=== PATIENT | male | born 1985 | race Caucasian/White ===

== ENCOUNTER 2022-02-23 17:47 | Emergency (ER) | payer OTHER ==
[~2022-02-23] VITALS: Ht 188 cm; Wt 117.9 kg
[2022-02-23] MEDS: CYCLOBENZAPRINE HCL 10 MG TABLET PO ONE (19:30)
[2022-02-23] MEDS: CYCLOBENZAPRINE HCL 10 MG TABLET ONE (19:32)
[2022-02-23] MEDS ORDERED: CYCL5TAB PO (19:35)
[2022-02-23 19:39] VITALS: BP 145/82
== END 2022-02-23 20:27 | disposition home or self-care (01) ==
LOC: EDH 17:47
DX: M62.830 Muscle spasm of back (principal)
CPT/HCPCS: 72100

== ENCOUNTER 2024-10-19 17:20 | Emergency (ER) | payer BC ==
[~2024-10-19] VITALS: Ht 188 cm; Wt 106.1 kg
[~2024-10-19 17:20] MED LIST: CYCL5TAB3 PO
--- NOTE | 2024-10-19 17:39 | ERN ---
ED Note History of Present Illness Stated Complaint: SOB Chief Complaint: Shortness of Breath Time Seen by MD: 17:25 Time Seen by Midlevel: 17:25 Dictation: The patient is a 39-year-old male with a history of hypertension who presents to the emergency department with complaints of shortness of breath associated with chest pain, numbness to all extremities, nausea and dizziness onset an hour ago. patient reports that he has been having these episodes for a while intermittently. Reports he was evaluated in March for similar symptoms and was referred to Cardiology but did not follow up. Patient denies any recent fa lls, denies any cough, fevers or upper respiratory symptoms. Patient currently denies any chest pain. Allergies: Coded Allergies: ketorolac (Unverified Allergy, Unknown, 02/23/22) Home Meds Active Scripts Cyclobenzaprine HCl (Cyclobenzaprine HCl) 5 Mg Tablet, 10 MG PO every 8 hours for spasm pain for 7 Days, #21 TAB Prov:STEFFANIE ANTONIO BELT KNIFE FEEDER 02/23/22 Past Medical History Past Medical History: Hypertension Surgical History: Other Surgical History Other: VESECTOMY RN Note Reviewed/Agreed w/PFSH: Yes Review of System Dictation Constitutional: Negative for fever,chills, and weight loss Eyes: Negative for injury, pain,redness, and discharge ENT: Negative for injury,pain or swelling Cardiovascular: Negative for palpitations, and edema positive for chest pain Respiratory: Negative for cough, and wheezing, positive for shortness of breath Abdomen/GI: Negative for abdominal pain, nausea, vomiting, diarrhea, and constipation Back: Negative for injury and pain : Negative for injury, bleeding and discharge MS/Extremity: Negative for injury and deformity Skin: Negative for rash, and discoloration Neuro: Negative for headache, weakness, numbness, tingling, and seizure positive for dizziness Psych: Negative for suicide ideation, homicidal ideation, and hallucinations Initial Vital Sign VS Vital Signs Date Time Temp Pulse Resp B/P (MAP) Pulse Ox O2 Delivery O2 Flow Rate FiO2 10/19/24 17:23 97.2 72 20 111/76 Room Air 0 10/19/24 18:17 100 21 Physical Exam Dictation Vital Signs reviewed General Appearance: Alert, oriented x 3, no acute distress, well developed, nourished. Head and Face: non-traumatic. Eyes: PERRL, pink conjunctivas, eyelid no trauma, anterior chamber with arcus senilis. Ears: Pinnas intact and no signs of trauma or erythema ear canals clear and no discharge TM no erythema Nose: No discharge, no bleeding. Oropharynx: Mouth normal, tongue pink. pharynx clear,no erythema, tonsils no exudates, no abscesses noted, mucous membrane moist Neck: Supple, non-tender, no thyromegaly, no masses, no JVD, no bruits Breast:Deferred Chest:No tenderness, no crepitus, no paradoxical movement, no retractions Lungs:Clear, well-ventilated, symmetric, no rales, no wheezing, no rhonchi, no stridor, good breath sounds bilaterally Heart: Regular rate, regular rhythm, no murmur, no gallops Vascular: no peripheral edema, Abdomen: Soft, positive bowel sounds, nondistended, no guarding, nontender, no rebound, no masses no hepatomegaly, no splenomegaly, no Beckham's sign, no hernias. Rectal: Deferred Genital: Deferred Neurological: Normal speech, motor function intact, sensory function intact , upper extremities equal in strength, lower extremities equal in strength, no facial droop, no slurred speech Musculoskeletal: Neck nontender, full range of motion, back nontender, full range of motion, Extremities: nontender, full range of motion Skin: Color pink, dry, no turgor, no rash, no lacerations, no abrasions, no contusions. Lymphatic: Deferred Results (Laboratory/Radiology) Laboratory/Radiology Laboratory Tests Test 10/19/24 17:54 10/19/24 19:26 10/19/24 20:08 White Blood Count 7.9 K/uL (4.8-10.8) Red Blood Count 5.14 MIL/uL (4.50-6.20) Hemoglobin 15.7 g/dL (14.0-18.0) Hematocrit 44.0 % (42-54) Mean Corpuscular Volume 85.6 fL (79-99) Mean Corpuscular Hemoglobin 30.5 pg (27.0-33.0) Mean Corpuscular Hemoglobin Concent 35.7 g/dL (32.0-36.0) Red Cell Distribution Width 12.5 % (11.0-15.5) Platelet Count 272 K/uL (130-400) Mean Platelet Volume 10.0 fL (7.5-10.5) Immature Granulocyte % (Auto) 0.3 % (0-1) Neutrophils (%) (Auto) 57.9 % (40.0-77.0) Lymphocytes (%) (Auto) 31.3 % (21.0-51.0) Monocytes (%) (Auto) 8.3 % (3.0-13.0) Eosinophils (%) (Auto) 1.8 % (0.0-8.0) Basophils (%) (Auto) 0.4 % (0.0-5.0) Neutrophils # (Auto) 4.6 K/uL (1.8-7.7) Lymphocytes # (Auto) 2.5 K/uL (1.0-4.8) Monocytes # (Auto) 0.7 K/uL (0.1-1.0) Eosinophils # (Auto) 0.14 K/uL (0.00-0.70) Basophils # (Auto) 0.03 K/uL (0.00-0.20) Absolute Immature Granulocyte (auto 0.02 K/uL (0-1) Nucleated Red Blood Cells 0.0 % (0.0-0.19) Sodium Level 139 mmol/L (136-145) Potassium Level 3.3 mmol/L (3.5-5.1) L Chloride Level 100 mmol/L (101-111) L Carbon Dioxide Level 25 mmol/L (21-32) Blood Urea Nitrogen 18 mg/dL (7-18) Creatinine 1.0 mg/dL (0.5-1.3) Glomerular Filtration Rate Calc 99 mL/min (>90) Random Glucose 133 mg/dL (70-105) H Total Calcium 9.3 mg/dL (8.5-10.1) Magnesium Level 2.00 mg/dL (1.80-2.40) Total Creatine Kinase 113 U/L (21-232) Troponin I High Sensitivity 5 ng/L (4-75) 5 ng/L (4-75) B-Type Natriuretic Peptide < 5 pg/mL (0-100) Urine Color LIGHT-YELLOW (YELLOW) Urine Appearance CLEAR (CLEAR) Urine pH 6.5 (5.0-8.0) Urine Specific [place] 1.007 (1.001-1.031) Urine Protein NEGATIVE mg/dL (NEGATIVE) Urine Glucose (UA) NEGATIVE mg/dL (NEGATIVE) Urine Ketones NEGATIVE mg/dL (NEGATIVE) Urine Occult Blood NEGATIVE (NEGATIVE) Urine Nitrate NEGATIVE (NEGATIVE) Urine Bilirubin NEGATIVE mg/dL (NEGATIVE) Urine Urobilinogen 0.2 mg/dL (0.2-1.0) Urine Leukocyte Esterase NEGATIVE [place]/uL Urine Opiates Screen NEGATIVE (NEGATIVE) Urine Barbiturates Screen NEGATIVE (NEGATIVE) Urine Phencyclidine Screen NEGATIVE (NEGATIVE) Urine Amphetamines Screen NEGATIVE (NEGATIVE) Urine Benzodiazepines Screen NEGATIVE (NEGATIVE) Urine Cocaine Screen NEGATIVE (NEGATIVE) Urine Marijuana (THC) Screen POSITIVE (NEGATIVE) H REASON: sob ORDERING PHYSICIAN: ALMITA DAVIS CONTRACT NEGOTIATION MANAGER PROCEDURE: CXR1VW - CHEST 1VW CHEST 1VW HISTORY: Shortness of breath COMPARISON: None FINDINGS: A frontal projection of the chest was obtained. Prominent interstitial markings are seen with possible superimposed infiltrates. The heart is normal in size. Degenerative changes are seen. No evidence of aortic calcification is seen. IMPRESSION: 1. Prominent interstitial markings are seen with possible superimposed infiltrates. Labs Reviewed?: Yes EKG: (+) rhythm (Sinus rhythm) EKG Comment: Date:10/19/2024 Time:1812 Ventricular rate:69 [place] interval:184 QRS duration:98 QT/QTc:421 EKG interpretation: Sinus rhythm Reviewed by ED Attending no STEMI ED Course ED Course Orders Procedure Category Date Status Time Cbc With Differential LAB 10/19/24 Complete 17:33 B-Type Natriuretic LAB 10/19/24 Complete Peptide 17:33 Chest 1vw RAD 10/19/24 Resulted 17:33 12 Lead Ekg Tracing- EKG 10/19/24 Complete Technical 17:33 0.9%Nacl 1000ml (Ns PHA 10/19/24 Complete 1000ml) 18:00 Ondansetron 4mg Inj PHA 10/19/24 Complete (Zofran 4mg Inj) 18:00 Magnesium LAB 10/19/24 Complete 17:33 Creatine Kinase, Total LAB 10/19/24 Complete 17:33 Troponin I High LAB 10/19/24 Complete Sensitivity 17:33 Urinalysis Profile LAB 10/19/24 Complete 17:33 Basic Metabolic Panel LAB 10/19/24 Complete 17:33 Orthostatic Vital CPOE 10/19/24 Transmitted Signs 17:33 Drug Screen Urine LAB 10/19/24 Complete 17:33 Troponin I High LAB 10/19/24 Complete Sensitivity 18:34 Potassium Bicarb/Cit PHA 10/19/24 Complete Ac 25meq (K-Lyte Ta 20:00 Current Medications Medications (Trade) Dose Ordered Sig/Nathaly Route PRN Reason Start Time Stop Time Status Last Admin Dose Admin Ondansetron HCl (zoFRAN 4MG INJ) 4 mg ONCE ONCE IVP 10/19/24 18:00 10/19/24 18:01 DC 10/19/24 18:06 Potassium Bicarbonate (K-Lyte Tablet Eff 25 Meq Tablet.eff) 25 meq ONCE ONCE PO 10/19/24 20:00 10/19/24 20:01 DC 10/19/24 19:46 Sodium Chloride 1,000 ml @ 0 mls/hr ONCE ONCE IV 10/19/24 18:00 10/19/24 18:01 DC 10/19/24 18:05 Vital Signs Date Time Temp Pulse Resp B/P (MAP) Pulse Ox O2 Delivery O2 Flow Rate FiO2 10/19/24 18:17 97.2 72 19 111/76 100 Room Air* 0 21 10/19/24 17:23 97.2 72 20 111/76 Room Air 0 HEART Score Response (Comments) Value History: Low suspicion (0) 0 EKG: Normal 0 Age: < 45yrs (0) 0 Risk Factors: No known risk factors (0) 0 Initial Troponin: Normal limit (0) 0 HEART Score Risk: Low Risk for MACE (1-3) Total 0 Medical Decision Making MDM The patient is a 39-year-old male with a history of hypertension who presents to the emergency department with complaints of shortness of breath associated with chest pain, numbness to all extremities, nausea and dizziness onset an hour ago. patient reports that he has been having these episodes for a while intermittently. Reports he was evaluated in March for similar symptoms and was referred to Cardiology but did not follow up. Patient denies any recent falls, denies any cough, fevers or upper respiratory symptoms. Patient currently denies any chest pain. CBC showed no leukocytosis, normocytic anemia, chemistry showed mild hypokalemia, hypochloremia, negative troponin x2, negative BNP. Urinalysis unremarkable, toxicology positive for THC. Patient's chest x-ray showed mild infiltrates. Patient will be treated with the antibiotics as outpatient. Patient received electrolyte replacement, IV fluids in ER. Patient is on hydrochlorothiazide may be mildly dehydrated. Low heart score. Patient continues neurologically intact, in no acute distress, nontoxic appearance. Stable vital signs. Labs and imaging discussed with the patient who agrees to follow up with PCP. Differential diagnosis: Anxiety, electrolyte imbalance, ACS, pneumothorax, dehydration Need for hospitalization: Patient does not meet criteria for hospitalization. There are no social concerns with this patient. DX & DISP Disposition: Discharge Departure Impression: Primary Impression: Pneumonitis Additional Impressions: Mild dehydration, Chest pain with low risk for cardiac etiology, Mild tetrahydrocannabinol (THC) abuse Condition: Stable Scripts Albuterol Sulfate (Ventolin Hfa/Proventil Hfa/Proair Hfa) 90 Mcg Puff 1-2 PUFF IH Q4H PRN for SHORTNESS OF BREATH for 5 Days, #1 INH 0 Refills PHARMACY TO DISPENSE 1 INHALER FOR USE Prov: ALMITA DAVIS 10/19/24 Azithromycin (Zithromax) 250 Mg Tablet 250 MG PO AD for 5 Days, #6 TAB Take 2 250 mg tablets on day 1, then take 1 250mg tablets daily for 4 days Prov: ALMITA DAVIS 10/19/24 Additional Instructions: Is follow up with your primary doctor in 1-2 days. Take your medications as prescribed. Continue oral hydration at home. If symptoms worsen please return to ER. FOLLOW-UP WITH PRIMARY CARE PROVIDER IN 1 TO 2 DAYS. TAKE MEDICATIONS DIRECTED HERE IN THE EMERGENCY ROOM. OKAY TO CONTINUE HOME MEDICATIONS UNLESS OTHERWISE DISCUSSED DURING YOUR VISIT IN THE EMERGENCY ROOM TODAY. RETURN TO YOUR NEAREST EMERGENCY ROOM IF SYMPTOMS WORSEN OR IF THERE IS NO IMPROVEMENT. CALL 911 IF YOU NEED IMMEDIATE ASSISTANCE. TAKE TYLENOL OR MOTRIN [id number] NEEDED AND IF NO CONTRAINDICATIONS ARE PRESENT. INCREASE ORAL HYDRATION. A WOUND CULTURE OR URINE CULTURE WAS ORDERED HERE IN THE EMERGENCY ROOM DEPARTMENT PLEASE FOLLOW-UP WITH PRIMARY CARE PROVIDER AND ADVISE THEM TO GET REPEAT PORTS FROM OUR FACILITY. IF YOU HAD ANY [facility] WRAP/SPLINTS THAT WERE APPLIED HERE, PLEASE DO NOT REMOVE THEM UNTIL YOU SEE YOUR PRIMARY CARE OR SPECIALTY. Referrals: BRII SIMON BELT KNIFE FEEDER (PCP) Time of Disposition: 20:42 I have reviewed the case, and I agree with, Diagnosis and Plan ALMITA DAVIS Oct 19, 2024 17:39
[2024-10-19] MEDS: 0.9%NACL 1000ML 1,000 ML IV ONE (18:05)
[2024-10-19] MEDS: ondanSETRON 4MG INJ IVP ONE (18:06)
[2024-10-19 18:11] LABS: BASOPHILS # (AUTO) 0.03 K/uL (0.00-0.20); BASOPHILS % (AUTO) 0.4 % (0.0-5.0); EOSINOPHILS # (AUTO) 0.14 K/uL (0.00-0.70); EOSINOPHILS % (AUTO) 1.8 % (0.0-8.0); IMMATURE GRANULOCYTE ABSOLUTE 0.02 K/uL (0-1); LYMPHOCYTES # (AUTO) 2.5 K/uL (1.0-4.8); LYMPHOCYTES % (AUTO) 31.3 % (21.0-51.0); MEAN CORPUSCULAR HEMOGLOBIN 30.5 pg (27.0-33.0); MEAN CORPUSCULAR HGB CONC 35.7 g/dL (32.0-36.0); MEAN CORPUSCULAR VOLUME 85.6 fL (79-99); MONOCYTES # (AUTO) 0.7 K/uL (0.1-1.0); MONOCYTES % (AUTO) 8.3 % (3.0-13.0); NEUTROPHILS # (AUTO) 4.6 K/uL (1.8-7.7); NEUTROPHILS % (AUTO) 57.9 % (40.0-77.0); PLATELET COUNT (AUTO) 272 K/uL (130-400); RED BLOOD CELL COUNT(AUTO) 5.14 MIL/uL (4.50-6.20); RED CELL DISTRIBUTION WIDTH 12.5 % (11.0-15.5); WHITE BLOOD COUNT (AUTO) 7.9 K/uL (4.8-10.8)
--- NOTE | 2024-10-19 18:15 | EKG ---
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
[2024-10-19 18:17] VITALS: O2SAT 100
[2024-10-19 18:21] LABS: POTASSIUM 3.3 mmol/L (3.5-5.1)
[2024-10-19 18:38] LABS: B-TYPE NATRIURETIC PEPTIDE < 5 pg/mL (0-100)
--- NOTE | 2024-10-19 19:10 | HMCIMG ---
CHEST 1VW HISTORY: Shortness of breath COMPARISON: None FINDINGS: A frontal projection of the chest was obtained. Prominent interstitial markings are seen with possible superimposed infiltrates. The heart is normal in size. Degenerative changes are seen. No evidence of aortic calcification is seen. IMPRESSION: 1. Prominent interstitial markings are seen with possible superimposed infiltrates.
[2024-10-19 19:37] LABS: APPEARANCE,URINE CLEAR (CLEAR); BILIRUBIN,URINE NEGATIVE (NEGATIVE); COLOR,URINE LIGHT-YELLOW (YELLOW); GLUCOSE, URINE (UA) NEGATIVE (NEGATIVE); KETONES,URINE NEGATIVE (NEGATIVE); LEUKOCYTE ESTERASE ,URINE NEGATIVE Leu/uL (NEGATIVE); NITRATE,URINE NEGATIVE (NEGATIVE); OCCULT BLOOD,URINE NEGATIVE (NEGATIVE); PH,URINE 6.5 (5.0-8.0); PROTEIN,URINE NEGATIVE (NEGATIVE); UROBILINOGEN,URINE 0.2 mg/dL (0.2-1.0)
[2024-10-19 19:38] LABS: ADD UA MICROSCOPIC NO
[2024-10-19 19:45] LABS: AMPHET/METH SCREEN,URINE NEGATIVE (NEGATIVE); BARBITURATE SCREEN, URINE NEGATIVE (NEGATIVE); BENZODIAZEPINES SCREEN,URINE NEGATIVE (NEGATIVE); CANNABINOID SCREEN,URINE POSITIVE (NEGATIVE); COCAINE SCREEN,URINE NEGATIVE (NEGATIVE); OPIATE SCREEN,URINE NEGATIVE (NEGATIVE); PHENCYCLIDINE SCREEN,URINE NEGATIVE (NEGATIVE)
[2024-10-19] MEDS: PoTASSium BIcarbonate/CIT AC 25 MEQ TABLET.EFF PO ONE (19:46)
[2024-10-19] MEDS ORDERED: ALBUHFA IH (20:42)
[2024-10-19] MEDS ORDERED: AZIT250T PO (20:42)
[2024-10-19 20:45] VITALS: BP 119/76; PULSE 70; RESP 19; TEMP 97.2
== END 2024-10-19 20:49 | disposition home or self-care (01) ==
LOC: EDH 17:20
DX: J18.9 Pneumonia, unspecified organism (principal); E86.0 Dehydration; R07.89 Other chest pain; I10 Essential (primary) hypertension; F12.10 Cannabis abuse, uncomplicated
CPT/HCPCS: 99284; 96374; 96361; 71045; 82550; 83735; 84484 ×2; 80048; 83880; 80305; 85025; 81003; 36415; 93005; J7030; J2405